=== PATIENT | male | born 1980 | race African-American/Black ===

== ENCOUNTER 2016-10-26 13:44 | Emergency (ER) | payer OTHER ==
[~2016-10-26] VITALS: Ht 200.6 cm; Wt 124.7 kg
[~2016-10-26 13:44] MED LIST: DOXYCYCLINE100 MG PO; FLEXERIL10 MG PO; FLEXERIL5 MG PO; HYDROCODONE BIT1 T11 PO; KEFLEX500 MG PO; MOTRIN800 MG PO; NAPROSYN500 MG PO; PEN-V500 MG PO; PENICILLIN VK500 MG PO; Peridex 473 ML473 ML PO; TRAMADOL HCL50 MG PO; TYLENOL325 M1 PO; VICODIN 5/500 505 MG PO; VOLTAREN50 M1 PO
[2016-10-26] MEDS ORDERED: LIDOCAINE HCL100 M1 MM (13:55)
[2016-10-26] MEDS ORDERED: Peridex 473 ML473 ML PO (13:55)
[2016-10-26] MEDS ORDERED: NAPROSYN500 MG PO (13:55)
[2016-10-26] MEDS ORDERED: PENICILLIN VK500 MG PO (13:55)
== END 2016-10-26 14:48 | disposition home or self-care (01) ==
LOC: ED 13:44
DX: K02.9 Dental caries, unspecified (principal); R03.0 Elevated blood-pressure reading, without diagnosis of hypertension; F17.200 Nicotine dependence, unspecified, uncomplicated